=== PATIENT | female | born 1975 | race Two or more races ===

== ENCOUNTER → 2018-08-16 | Outpatient (CLI) | payer OTHER ==
--- NOTE | 2018-08-17 15:07 | PATHOLOGY ---
[facility] Accession Number: [id number] . 01 Material submitted: . RIGHT BREAST MASS, 7MM SUBAREOLAR . 01 Clinical history: . Right breast mass . 02 Diagnosis: Breast tissue, right breast 7 mm subareolar mass needle biopsies: - Duct ectasia/cystic change, stromal fibrosis, and chronic inflammation. . (JPM:[facility] 08/17/2018) QTP/08/17/2018 . 02 Comment: There is no evidence of malignancy. (JPM:[facility] 08/17/2018) . 02 Electronically signed: . Дмитрий Bliss MD, Pathologist NPI- [id number] . 01 Gross description: . Received in formalin labeled "Isabela Wyatt, right breast," and additionally labeled on the requisition as "7 mm subareolar," are multiple needle cores of yellow-hudson fibrofatty tissue measuring 2.0 x 0.9 x 0.3 cm in aggregate dimensions. The tissue is submitted in its entirety in cassette A1 through A3. The cold ischemic time is 5 minutes. The total formalin fixation time is 8 hours and 25 minutes. (TSD; 08/16/2018) . TOB/TOB . 02 Pathologist provided ICD-10: N60.41, N60.31, N61.0 . 02 CPT . 655925 Specimen Comment: A courtesy copy of this report has been sent to Specimen Comment: [phone], . Specimen Comment: Report sent to / DR JUDGE Performed at: [address], [place], [place] [id number] MD Zack Vang MD Phone: [phone] Performed at: 02 [facility] [address] [place], [place] [id number] MD Дмитрий Bliss MD Phone: [phone]
--- NOTE | 2018-08-18 08:41 | RAD ---
Ultrasound-guided right breast biopsy, 08/16/2018: History: Suspicious periareolar nodule Previous studies demonstrated a suspicious superficial nodule at the 12-1:00 periareolar region in the right breast. Under local anesthesia, aseptic conditions and sonographic guidance the beneSol biopsy instrument was passed along the posterior margin of this nodule via a medial approach. Multiple 12-gauge vacuum-assisted core samples were obtained and sent to pathology for evaluation. A biopsy marker was deposited at the biopsy site. The biopsy instrument was removed and hemostasis obtained. Two-view postprocedural digital mammograms were then obtained to document position of the biopsy marker. The patient tolerated the procedure well and left the department in good condition. 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 There was no evidence of malignancy. This is considered to be a concordant finding. BI-RADS 2-benign findings
== END | disposition home or self-care (01) ==
LOC: US 09:09
PROVIDERS: ATTEND Radiology Diagnostic Radiology
DX: N60.31 Fibrosclerosis of right breast (principal); N60.41 Mammary duct ectasia of right breast; N61.0 Mastitis without abscess; Z98.890 Other specified postprocedural states
CPT/HCPCS: 19083; 77065; 88305; C1713; 19081; 76942